=== PATIENT | male | born 1930 | race Caucasian/White ===

== ENCOUNTER 2016-07-28 11:44 | Inpatient (IN) ==
[2016-07-28] MEDS ORDERED: ASPIRIN PO ONE (12:21)
--- NOTE | 2016-07-28 12:34 | EKG Report ---
Test Performed on : 07/28/2016 12:18:25 PM Test Reason : Chest Pain Blood Pressure : / mmHG Vent. Rate : 082 BPM Atrial Rate : 082 BPM P-R Int : 126 ms QRS Dur : 200 ms QT Int : 474 ms P-R-T Axes : -22 -73 095 degrees QTc Int : 553 ms Atrial-sensed ventricular-paced rhythm Abnormal ECG When compared with ECG of 03-MAR-2015 21:43, Electronic ventricular pacemaker has replaced Wide QRS rhythm. Unconfirmed Result
[2016-07-28 13:51] LABS: MANUAL DIFF NEEDED? NO
[2016-07-28 14:00] LABS: BASO% 0.1 % (0.0-0.8); EOS# 0.01 X1000 (0.0-0.7); EOS% 0.1 % (0.0-10.0); HEMATOCRIT 27.7 % (42.0-52.0); HEMOGLOBIN 8.7 g/dL (14.0-18.0); IMM GRAN# 0.06 X1000 (0.0-0.04); IMM GRAN% 0.4 % (0.0-0.5); LYMPH# 0.72 X1000 (1.2-3.4); LYMPH% 4.5 % (20.5-51.1); MCH 25.6 PG (27-31); MCHC 31.4 g/dL (33-37); MCV 81.5 FL (81-99); MONO# 1.73 X1000 (0.11-0.59); MONO% 10.8 % (1.7-9.3); MPV 9.3 FL (7.4-10.4); NEUT% 84.1 % (42.2-75.2); PLT 318 X1000 (130-400)
--- NOTE | 2016-07-28 14:01 | Diag Imaging Result Document ---
PROCEDURE NAME: CHEST-PORTABLE - 07/28/2016 AP PORTABLE CHEST: TIME: 1230 hours. FINDINGS: The inspiration is somewhat suboptimal. There is a pacemaker on the left, which was not present on 06/30/2015. Otherwise, there has been no significant change. IMPRESSION: Poor inspiration.
[2016-07-28 14:13] LABS: INR 1.06; PROTIME 11.2 Seconds (9.2-11.7); PTT 30.6 Seconds (22.0-36.0)
[2016-07-28 14:58] LABS: CALCIUM 8.8 mg/dL (8.8-10.2); MAGNESIUM 2.1 mg/dL (1.5-2.7); POTASSIUM 5.7 mmol/L (3.5-5.1); TOTAL BILIRUBIN 0.6 mg/dL (0.20-1.00); TOTAL PROTEIN 7.5 g/dL (6.3-8.3)
[2016-07-28] MEDS ORDERED: ROCEPHIN 1 GM/NS 1 GM/50 ML IVPB IV ONE (15:29)
[2016-07-28] MEDS ORDERED: LASIX IV ONE (15:31)
[2016-07-28 16:03] LABS: URINE MICRO REVIEW NEEDED? NO; URINE SOURCE CLEAN CATCH
[2016-07-28 16:06] LABS: BILIRUBIN URINE NEGATIVE (NEGATIVE); BLOOD URINE SMALL (NEGATIVE); COLOR YELLOW; GLUCOSE URINE NEGATIVE (NEGATIVE); LEUKOCYTES URINE LARGE (NEGATIVE); NITRITE URINE POSITIVE (NEGATIVE); PH URINE 6.5; PROTEIN URINE TRACE mg/dL (NEGATIVE); SP GRAVITY URINE 1.007; TURBIDITY URINE HAZY (CLEAR); UR EPITHELIAL CELLS <10 /HPF (<10); URINE BACTERIA 4+ /HPF; URINE CULTURE NEEDED? YES; URINE RBC <10 /HPF (<10); URINE WBC TNTC /HPF (<10); UROBILINOGEN URINE NORMAL (NORMAL)
--- NOTE | 2016-07-28 16:07 | PROVIDER DOCUMENTATION ---
This chart was entered by Tari Hamilton Scribe, acting as scribe for Sheeba Oneal MD. HPI-General Adult - General Chief Complaint: Fever Stated Complaint: URINARY RETENTION Time Seen by Provider: 07/28/16 12:07 Source: patient, family Allergies/Adverse Reactions: Patient Allergies Allergy/AdvReac Type Severity Reaction Status Date / Time diphenhydramine HCl * Allergy Unknown Verified 07/28/16 15:10 [From [facility]] Home Medications: Home Medication List Medication Instructions Recorded Confirmed Last Taken Type Alprazolam 0.5 mg PO BID 08/27/13 07/28/16 07/28/16 07:00 History Clopidogrel Bisulfate [Plavix] 75 mg PO DAILY 08/27/13 07/28/16 07/28/16 07:00 History Isosorbide Mononitrate [Ismo] 20 mg PO BID 08/27/13 07/28/16 07/28/16 07:00 History Lansoprazole [Prevacid] 15 mg PO DAILY PRN PRN 08/27/13 07/28/16 07/28/16 07:00 History Metoprolol Succinate E.r. [Toprol 100 mg PO DAILY 08/27/13 07/28/16 07/28/16 07: 00 History Xl] Nortriptyline [Pamelor] 50 mg PO HS 08/27/13 07/28/16 07/27/16 20:00 History Potassium Chloride E.r. [Klor-Con] 20 meq PO TID 08/27/13 07/28/16 07/28/16 07: 00 History Allopurinol [Zyloprim] 100 mg PO HS #0 03/05/15 07/28/16 03/02/15 Rx Bumetanide 2 mg PO DAILY 07/28/16 07/28/16 07/28/16 07:00 History Levothyroxine [Synthroid] 50 microgm PO DAILY 07/28/16 07/28/16 07/28/16 07:00 History Pravastatin Sodium 40 mg PO QHS 07/28/16 07/28/16 07/27/16 20:00 History Sertraline HCl 50 mg PO DAILY 07/28/16 07/28/16 07/28/16 07:00 History - History of Present Illness -Gen Adult Nature of Presenting Problems: 86 y/o M presents to ED cc of fever, urinary retention and some mild SOB and chest discomfort. Pt had defib placed x 2 weeks ago. Pt has no complaints about defib. States seen at doc on Monday and defib is okay. Pt reports pt having a fever yesterday. Pt states he voided this morning alittle . States he still feels full. Pt has long hx of cardiac workup. Pt is on Lasix. Pt has pedal edema 3+. Pt has swelling all over. Pt is alert. Location of Pain/Injury: reports: generalized Pain Radiation: reports: no radiation Quality of Pain: reports: aching Severity: reports: mild Onset/Duration: reports: gradual Timing: reports: still present Context/Activities at Onset: reports: light activity Modifying Factors: improves with: nothing Associated Symptoms: reports: chest pain, fever/chills, shortness of breath, other (urination decreased). denies: back/neck pain, loss of appetite, sinus congestion/drainage, nausea, seizure, vomiting, weakness Review of Systems - Adult - REVIEW OF SYSTEMS - ADULT ROS:: ROS per family Constitutional: reports: fever. denies: chills Ears, Nose, Mouth & Throat: denies: ear discharge, ear pain Cardiovascular: reports: chest pain (discomfort), edema. denies: irregular heart rate, palpitations Respiratory: reports: shortness of breath. denies: cough Gastrointestinal: denies: abdominal pain, diarrhea, nausea, vomiting Genitourinary: denies: discharge, frequency Musculoskeletal: denies: bone pain, back pain Neurological: denies: dizziness/vertigo, headache/migraines Past History - Adult - PAST MEDICAL HISTORY-ADULT Review of Records: reports: Old Records Reviewed, Nursing Assessment Review Major Childhood Illnesses: reports: denies history Cardiovascular: reports: CAD, HTN (LA), hyperlipidemia, LA Respiratory: reports: denies history Gastrointestinal: reports: GERD Obstetrical/Gynecological: reports: denies history Genitourinary: reports: denies history Musculoskeletal: reports: denies history 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) Psychiatric: reports: denies history Endocrine/Immune: reports: denies history Other Conditions: reports: denies history - PRIOR SURGERIES/PROCEDURES Surgical/Procedure History: reports: CABG, cholecystectomy, tonsillectomy - PRIOR HOSPITALIZATIONS Prior Hospitalizations: reports: none - IMMUNIZATION STATUS Childhood Immunizations: See Nurse Assessment Flu Vaccine: See Nurse Assessment - FAMILY HISTORY Family History: reviewed, not pertinent - SOCIAL HISTORY Smoking: denies Substance Use: denies Physical Exam-General - PHYSICAL EXAM-ADULT Initial Vital Signs Reviewed: Yes - CONSTITUTIONAL General Appearance: alert, other (edema) - EYES Eyes: pink conjunctivae - HEAD, EARS, NOSE, MOUTH & THROAT HENMT: moist mucous membranes, normal ENT inspection - NECK Neck: non-tender - RESPIRATORY Respiratory: chest non-tender, wheezing - CARDIOVASCULAR Cardiovascular: normal peripheral pulses, regular rate, rhythm, no edema - GASTROINTESTINAL (ABDOMEN) Abdominal Exam: normal bowel sounds, non tender, soft - MUSCULOSKELETAL Back Exam: no CVA tenderness, no vertebral tenderness Extremity: non-tender, pedal edema Peripheral Pulses: dorsalis-pedis (R): 3+, dorsalis-pedis (L): 3+ - SKIN Integumentary: normal color, normal turgor, warm/dry - NEUROLOGIC Neurologic: grossly normal, no motor/sensory deficits - PSYCHIATRIC Psych/Mental Status: oriented x 3 Progress - PLAN OF CARE/RESULTS Progress/Plan/Lab Results: Vital Signs - 8 hr 07/28/16 11:48 Temperature 98.1 F Pulse Rate 82 Respiratory Rate 20 Blood Pressure 147/95 O2 Sat by Pulse Oximetry 97 PLAN: LABS, CHEST XRAY, BLADDER SCAN, MONITOR PT, CATH , DAUGHTER AND GRANDDAUGHTER AT BED SIDE. PT IS A FULL CODE. STATES HE HAS NO LIVING WILL. Result Diagrams: 07/28/16 13:35 07/28/16 13:35 - REASSESSMENT Reassessment #1 Time Reassessed: 14:51 Status: unchanged Reassessment Comment: waiting on labs, then will call pcp - EKG 1 Time of EKG reading by physician:: 12:18 EKG Read and Signed by:: Sheeba Oneal EKG Interpretation (*Must complete 3 of following elements*): Abnormal Rate: 82 Rhythm: atrial-sensed ventricular-paced rhythm Comments: no more further - XRAY 1 XRAY: Bilateral XRAY Study: Chest Impression: Normal XRAY Interpretation: enlarge heart; stable chest - Dr. Oneal (er doc) - CONSULTS/PCP/HOSPITALIST Notification #1 *Consult/PCP/Hospitalist*: (PCP) Time Discussed: 15:23 Consult Disposition: Admit (DO CT'S/LASIX/ ANITBIOTIC/ ADMIT PT TO [facility]) Departure - Departure Time of Disposition Decision: 16:05 DIAGNOSIS: Fever, Urinary retention, CHF exacerbation, Renal failure, Hyperglycemia Disposition: ADMITTED INPATIENT 09 Certified Medical Emergency: Emergent Condition: Stable Referrals and Follow-Ups: Enrique Thomas MD [Primary Care Provider] - - Critical Care Note This patient required my direct & personal management of CC.: No This chart was documented by the indicated scribe, (Tari Hamilton Scribe) and accurately reflects the services I performed and decisions made by me, Sheeba Oneal MD, as attested by the provider's signature.
--- NOTE | 2016-07-28 16:50 | Diag Imaging Result Document ---
PROCEDURE NAME: THORAX/ABDOMEN/PELVIS W/O CONT - 07/28/2016 CT OF THE CHEST WITHOUT CONTRAST: FINDINGS: There is some atelectasis, particularly in the bases. There are small pleural effusions, more so on the left than the right. There is extensive coronary atherosclerosis. There are transvenous and epicardial pacemaker leads. No evidence of pneumothorax is present. There are sternotomy wires. There is cardiomegaly. IMPRESSION: Extensive atherosclerotic change, including the coronary atherosclerosis with cardiomegaly and pleural effusions. Bibasilar atelectasis. CT UROGRAM WITHOUT CONTRAST: FINDINGS: There has been previous cholecystectomy. The spleen and adrenal glands are not enlarged. The pancreas is slightly atrophic in appearance. There is some stool throughout the colon. There are atherosclerotic calcifications in the aorta and superior mesenteric artery. There is a saccular aneurysm of the distal abdominal aorta measuring over 6 cm in AP dimension. Compared to 04/19/2010 this has increased from 4.5 cm. There is no evidence of appendicitis. There is stool throughout the colon. No bowel dilatation is present. There is a fat-containing inguinal hernia on both sides. No evidence of herniated bowel is present. There is some diverticulosis in the sigmoid colon without evidence of diverticulitis. There is no evidence of free fluid. There are spondylotic changes in the lumbar spine. There is no evidence of nephrolithiasis or hydronephrosis. There is a soft tissue density mass adjacent to or arising from the pancreatic tail at the splenic hilus measuring at least 3 cm in greatest dimension. Compared to the previous examination, this has not changed significantly in size or appearance and may represent a splenule. IMPRESSION: 1. Enlarged distal abdominal aortic aneurysm compared to 04/19/2010. 2. Constipation. 3. Atherosclerosis. 4. Stable mass at the tail of the pancreas.
[2016-07-28] MEDS ORDERED: TYLENOL PO PRN (20:59)
--- NOTE | 2016-07-28 21:37 | HISTORY AND PHYSICAL ---
CHIEF COMPLAINT: Weakness and shortness of breath. HISTORY OF PRESENT ILLNESS: Mr. Bean 86-year-old, white gentleman, not doing well for the last few weeks. The patient was complaining of weakness. The patient had 101 fever at home. Not able to get up by himself. Home health nurse called me today, very weak and lethargic. I decided to send him to the ER for evaluation. I evaluated patient 2 days ago. He did have deterioration in his renal function. The patient was more anemic. The patient recently had a pacemaker placed about 2 weeks ago. Since then the patient was more weak. The patient had low-grade fever, cough with scanty sputum production. Poor oral intake. The patient did have urinary frequency, urgency, mild hesitancy, no dysuria or hematuria. The patient denied any diarrhea, at times constipation. The patient was evaluated in the ER. We did the workup and patient found to have UTI, deterioration in renal function. I did CT scan of the abdomen and pelvis which did reveal abdominal aortic aneurysm, pancreatic mass which was stable. The patient had an enlarged prostate. The patient did have vague abdominal pain. The patient was needing assistance in ambulation. No further history available at this time. ALLERGY: Diphenhydramine. PAST MEDICAL HISTORY: Significant for coronary artery disease status post CABG. Patient had multiple stent placements. The patient was told to have advanced coronary artery disease and nothing can be done. Recent symptomatic bradycardia. Pacemaker and defibrillator placed 2 weeks ago. Enlarged prostate, possible prostate cancer. Abdominal aortic aneurysm. Pancreatic mass. Congestive heart failure due to systolic heart failure. Hypertension. Anemia most likely of chronic disease. Chronic kidney disease. Metabolic syndrome. Mild dementia. Osteoarthritis. HOME MEDICATION: Xanax, Plavix, Imdur, Synthroid, beta-darion, Pravachol, Zoloft. FAMILY HISTORY: Noncontributory. REVIEW OF SYSTEMS: As per HPI. PHYSICAL EXAMINATION: GENERAL: Elderly white gentleman, in mild distress. VITAL SIGNS: In the emergency room, blood pressure 147/95, pulse 82, respiration 20, temperature 98.1 degrees. SKIN: Senile turgor. HEENT: Head atraumatic, normocephalic. [place] conjunctivae. Anicteric sclerae. Extraocular muscle movement normal. Fundus cannot be penetrated. Good oral hygiene. No tonsillopharyngeal congestion or exudate. Ears and nose benign. NECK: Supple. No JVD, thyromegaly or lymphadenopathy. CHEST: Bibasilar crepitation. Occasional wheezing. No rales. CARDIOVASCULAR: S1 and S2 heard. 2/6 systolic murmur at the apex. No gallop. Wound of recent pacemaker well-healed. ABDOMEN: Soft, globular. Bowel sounds present. No organomegaly or mass. EXTREMITIES: No cyanosis, clubbing. Bilateral pitting edema. CENTRAL NERVOUS SYSTEM: Alert, awake. Able to move all 4 limbs. LAB DATA: Revealed leukocytosis with left shift. Hemoglobin 8.7, hematocrit 27.7, platelet count 318,000. PT/INR 1.06. D-dimer 1.19. Potassium 5.7, sodium 128, BUN 35, creatinine 2.2. ProBNP was more than 35,000. Urinalysis did reveal too numerous to count WBCs. Leukocytes were large and nitrite was positive, 4+ bacteria. CONSIDERATION: 1. Patient does have urinary tract infection. 2. Uncompensated congestive heart failure. 3. Anemia most likely of chronic disease. 4. Cardiac arrhythmia and pacemaker. 5. Chronic kidney disease. 6. Gastritis and reflux disease. 7. Osteoarthritis. 8. Situational depression and anxiety. 9. Hypertension. PLAN: 1. Admit the patient. 2. IV antibiotics. IV Lasix. Symptomatic treatment. 3. I discussed at length about poor prognosis. Family understood and agreed. They requested DNR level 2. 4. The patient's chest x-ray and CT scan results reviewed. The patient does have a pancreatic mass on CT scan. 5. Abdominal aortic aneurysm. 6. Significant cardiomegaly. cc: Enrique Thomas MD
[2016-07-28] MEDS: PROTONIX IV SCH (22:13)
[2016-07-28] MEDS: XANAX PO SCH (22:13)
[2016-07-28] MEDS: SODIUM CHLORIDE 0.9% INJ SCH (22:13)
[2016-07-28] MEDS: ISMO PO SCH (22:14)
[2016-07-28] MEDS: PRAVACHOL PO SCH (22:14)
[2016-07-29 05:36] LABS: MANUAL DIFF NEEDED? NO
[2016-07-29 05:46] LABS: EOS# 0.01 X1000 (0.0-0.7); EOS% 0.1 % (0.0-10.0); HEMATOCRIT 24.8 % (42.0-52.0); HEMOGLOBIN 7.9 g/dL (14.0-18.0); IMM GRAN# 0.04 X1000 (0.0-0.04); IMM GRAN% 0.3 % (0.0-0.5); LYMPH# 0.71 X1000 (1.2-3.4); LYMPH% 4.7 % (20.5-51.1); MCH 25.6 PG (27-31); MCHC 31.9 g/dL (33-37); MCV 80.3 FL (81-99); MONO# 1.65 X1000 (0.11-0.59); MONO% 10.8 % (1.7-9.3); MPV 9.4 FL (7.4-10.4); NEUT% 84.1 % (42.2-75.2); PLT 329 X1000 (130-400); RBC 3.09 XMIL (4.7-6.1)
[2016-07-29 06:01] LABS: ALBUMIN 3.4 g/dL (3.5-5.0); CALCIUM 8.4 mg/dL (8.8-10.2); MAGNESIUM 2.1 mg/dL (1.5-2.7); POTASSIUM 4.5 mmol/L (3.5-5.1); TOTAL BILIRUBIN 0.47 mg/dL (0.20-1.00); TOTAL PROTEIN 6.6 g/dL (6.3-8.3)
[2016-07-29] MEDS ORDERED: LASIX IV ONE (06:11)
[2016-07-29] MEDS: SYNTHROID PO SCH (06:33)
--- NOTE | 2016-07-29 07:34 | PROGRESS NOTE ---
DATE: 07/29/2016 SUBJECTIVE: Mr. Bean is doing fair. He is feeling some better today. The patient was able to void. He denied any fever or chills. He does feel weak. No nausea or vomiting. Denied any diarrhea. No typical chest pain. OBJECTIVE: His vital signs noted. Neck is supple. No JVD.Lungs: Bibasilar crepitations. Heart: S1 and S2 heard 2/6 systolic murmur at the apex. Abdomen: Soft, globular. Bowel sounds present. Rectal: I did a rectal exam. Prostate was not tender though it was enlarged. The patient had large amount of stool in the rectum. It was firm and hard. Extremities: No cyanosis or clubbing. Minimal swelling. CARD RUNNER: Alert, awake and able to move all 4 limbs. LABORATORY DATA: Done this morning showing leukocytosis with left shift. The patient does have hemoglobin of 7.9, hematocrit 24.8 and platelet count 329,000. The patient does have hyponatremia and potassium improved to 4.5. LFT: AST was 82. ALT 92. Patient's CT scan of the abdomen and pelvis results reviewed. Urine culture result is pending. IMPRESSION AND PLAN: 1. Patient admitted with febrile illness and found to have a UTI. 2. Cardiac arrhythmia, recent pacemaker and defibrillator insertion. 3. Anemia most likely of chronic disease. Considering his compromise cardiopulmonary status, I think patient will be benefited from blood transfusion. I am going to transfuse 1 unit of packed RBC. 4. Chronic kidney disease. Advanced coronary artery disease. 5. Pancreatic mass, etiology not known. Family does not want any further investigation. 6. Abdominal aortic aneurysm. 7. History suggestive of prostate cancer. 8. I am going to get physical therapy evaluation. 9. Continue rest of the treatment. 10. Close observation. 11. Overall plan discussed with the patient. He is in agreement. cc: Enrique Thomas MD
[2016-07-29] MEDS: ISMO PO SCH ×2 (09:09→20:24)
[2016-07-29] MEDS: PLAVIX PO SCH (09:09)
[2016-07-29] MEDS: ZOLOFT PO SCH (09:09)
[2016-07-29] MEDS: TOPROL XL PO SCH (09:09)
[2016-07-29] MEDS: XANAX PO SCH ×2 (09:09→20:24)
[2016-07-29] MEDS ORDERED: NS 500 ML ONE (09:46)
[2016-07-29] MEDS ORDERED: NS 250 ML ONE (13:40)
[2016-07-29] MEDS: ROCEPHIN 1 GM/NS 1 GM/50 ML IVPB IV SCH (15:07)
[2016-07-29] MEDS: PROTONIX IV SCH (20:24)
[2016-07-29] MEDS: PRAVACHOL PO SCH (20:24)
[2016-07-30] MEDS: SYNTHROID PO SCH (06:00)
[2016-07-30] MEDS ORDERED: NORCO-5 PO PRN (07:52)
[2016-07-30] MEDS ORDERED: MILK OF MAGNESIA PO ONE (07:53)
[2016-07-30 07:57] LABS: MANUAL DIFF NEEDED? NO
[2016-07-30 08:51] LABS: BASO% 0.1 % (0.0-0.8); EOS# 0.14 X1000 (0.0-0.7); EOS% 1.5 % (0.0-10.0); HEMOGLOBIN 8.8 g/dL (14.0-18.0); IMM GRAN# 0.04 X1000 (0.0-0.04); IMM GRAN% 0.4 % (0.0-0.5); LYMPH# 0.77 X1000 (1.2-3.4); LYMPH% 8.2 % (20.5-51.1); MCH 26.3 PG (27-31); MCHC 32.6 g/dL (33-37); MCV 80.6 FL (81-99); MONO# 1.61 X1000 (0.11-0.59); MONO% 17.1 % (1.7-9.3); MPV 9.9 FL (7.4-10.4); NEUT% 72.7 % (42.2-75.2); PLT 311 X1000 (130-400); RBC 3.35 XMIL (4.7-6.1)
[2016-07-30 09:01] LABS: ALBUMIN 3.1 g/dL (3.5-5.0); CALCIUM 8.4 mg/dL (8.8-10.2); POTASSIUM 4.6 mmol/L (3.5-5.1); TOTAL BILIRUBIN 0.27 mg/dL (0.20-1.00); TOTAL PROTEIN 6.2 g/dL (6.3-8.3)
[2016-07-30] MEDS: LASIX IV SCH (09:11)
[2016-07-30] MEDS: PLAVIX PO SCH (09:11)
[2016-07-30] MEDS: MIRALAX PO SCH (09:11)
[2016-07-30] MEDS: ISMO PO SCH ×2 (09:11→20:23)
[2016-07-30] MEDS: TOPROL XL PO SCH (09:11)
[2016-07-30] MEDS: XANAX PO SCH ×2 (09:11→20:23)
[2016-07-30] MEDS: ZOLOFT PO SCH (09:11)
--- NOTE | 2016-07-30 10:09 | PROGRESS NOTE ---
DATE: 07/30/2016 SUBJECTIVE: Mr. Bean is doing fair. The patient claims he is not feeling well today, though he cannot pinpoint. Complaining of pain in the hip and lower back. No nausea or vomiting. Oral intake is fair. Yesterday, we had a problem with blood transfusion. He had extravasation of blood. We had a hard time with his IV. I recommended a PICC line. They could not start PICC line on the right side, and on the left side they could not because the patient recently had a pacemaker and defibrillator placed. He denied any typical chest pain or palpitations. Complaining of mild shortness of breath. The patient does feel depressed at times due to his limitations. OBJECTIVE: Vital Signs: Noted. Neck: Supple. No JVD. Lungs: Bibasilar crepitation. Heart: A 2 over 6 systolic murmur at the apex. Abdomen: Soft, globular. Bowel sounds present. Extremities: No cyanosis, clubbing. Mild swelling. The patient does have extravasation of blood in the right arm. No evidence of infection. Central Nervous System: Alert, awake, able to move all 4 limbs. CONSIDERATION: 1. Urinary tract infection. Urine culture report revealed Gram-negative rods. ID and sensitivity is pending. The patient is on Rocephin. 2. Acute on chronic kidney disease. 3. Systolic congestive heart failure. 4. Advanced coronary artery disease. 5. Cardiac arrhythmia and pacemaker. 6. Hip pain and back pain. 7. The patient does have history suggestive of possible prostate cancer. Family did not want any biopsy. 8. Situational depression. PLAN: I am going to get x-ray, start the patient on pain management. I started him on MiraLAX to prevent constipation and to treat constipation. Overall plan discussed with the patient. Morning laboratory data pending. We will check blood work tomorrow. Out of bed to chair. PROGNOSIS: Overall prognosis is fair to guarded. Family is aware. cc: Enrique Thomas MD
--- NOTE | 2016-07-30 10:26 | Diag Imaging Result Document ---
PROCEDURE NAME: HIP W/PELVIS BILAT 2 VIEWS - 07/30/2016 PELVIS AND BILATERAL HIPS, THREE VIEWS: FINDINGS: Neither hip is dislocated. No fracture. Minimal arthritic changes to each hip. No other abnormality. IMPRESSION: Minimal arthritic changes to each hip.
--- NOTE | 2016-07-30 11:17 | PROGRESS NOTE ---
DATE: 07/30/2016 SUBJECTIVE: Mr. Bean is a patient of Dr. Thomas. He is admitted with fever, urinary retention. He had blood transfusion yesterday 2 units. White count is 9.39, hemoglobin 8.8, hematocrit 27 today. OBJECTIVE: Vital signs: Stable. Lungs: Clear. Heart: Sounds are normal. Abdomen: Soft, nontender. LABORATORY DATA: His BUN is still 46, creatinine 2.3, sodium 131. IMPRESSION: 1. Extended spectrum beta lactamase negative. 2. Escherichia coli urinary tract infection. He is getting intravenous Rocephin and he is doing fairly well. cc: MD Enrique Bran MD
[2016-07-30] MEDS: ROCEPHIN 1 GM/NS 1 GM/50 ML IVPB IV SCH (16:29)
[2016-07-30] MEDS: PROTONIX IV SCH (20:23)
[2016-07-30] MEDS: PRAVACHOL PO SCH (20:23)
[2016-07-31 05:18] LABS: EOS% 3.1 % (0.0-10.0); HEMOGLOBIN 8.7 g/dL (14.0-18.0); IMM GRAN# 0.03 X1000 (0.0-0.04); IMM GRAN% 0.5 % (0.0-0.5); LYMPH# 0.71 X1000 (1.2-3.4); LYMPH% 10.9 % (20.5-51.1); MANUAL DIFF NEEDED? YES; MCHC 32.2 g/dL (33-37); MCV 80.8 FL (81-99); MONO# 1.31 X1000 (0.11-0.59); MONO% 20.2 % (1.7-9.3); MPV 9.2 FL (7.4-10.4); NEUT% 65.3 % (42.2-75.2); PLT 313 X1000 (130-400); RBC 3.34 XMIL (4.7-6.1)
[2016-07-31 05:32] LABS: EOS 2 % (1-10); LYMPHS 14 % (21-51); MONO 8 % (1-9)
[2016-07-31 05:35] LABS: ALBUMIN 3.2 g/dL (3.5-5.0); CALCIUM 8.3 mg/dL (8.8-10.2); POTASSIUM 4.3 mmol/L (3.5-5.1); TOTAL BILIRUBIN 0.18 mg/dL (0.20-1.00); TOTAL PROTEIN 6.1 g/dL (6.3-8.3)
[2016-07-31] MEDS: SYNTHROID PO SCH (06:06)
[2016-07-31] MEDS: LASIX IV SCH (09:13)
[2016-07-31] MEDS: MIRALAX PO SCH (09:13)
[2016-07-31] MEDS: XANAX PO SCH ×2 (09:14→20:00)
[2016-07-31] MEDS: ISMO PO SCH ×2 (09:14→21:00)
[2016-07-31] MEDS: PLAVIX PO SCH (09:14)
[2016-07-31] MEDS: ZOLOFT PO SCH (09:14)
[2016-07-31] MEDS: TOPROL XL PO SCH (09:14)
--- NOTE | 2016-07-31 12:51 | PROGRESS NOTE ---
DATE: 07/31/2016 Mr. Bean is doing better. His hemoglobin is 8.7, hematocrit 27 which is stable. His white count was 6.50 electrolytes are normal. BUN and creatinine and improving; BUN is 40, creatinine is 1.9. Overall condition is stable. We will continue with the current management. -8 cc: MD Enrique Bran MD
--- NOTE | 2016-07-31 13:41 | PROGRESS NOTE ---
DATE: 07/31/2016 Mr. Bean is doing better. His hemoglobin is 8.7, hematocrit 27 which is stable. His white count was 6.50. Electrolytes normal. BUN and creatinine are improving; BUN is 40, creatinine is 1.9. Overall condition is stable. Will continue with the current management. -9 cc: MD Enrique Bran MD
[2016-07-31] MEDS: ROCEPHIN 1 GM/NS 1 GM/50 ML IVPB IV SCH (16:54)
[2016-07-31] MEDS: PROTONIX IV SCH (19:54)
[2016-07-31] MEDS: PRAVACHOL PO SCH (20:00)
[2016-08-01 05:23] LABS: MANUAL DIFF NEEDED? NO
[2016-08-01 05:40] LABS: CALCIUM 8.4 mg/dL (8.8-10.2); POTASSIUM 4.3 mmol/L (3.5-5.1)
[2016-08-01 05:47] LABS: BASO% 0.2 % (0.0-0.8); EOS# 0.28 X1000 (0.0-0.7); EOS% 4.4 % (0.0-10.0); HEMATOCRIT 27.3 % (42.0-52.0); HEMOGLOBIN 8.8 g/dL (14.0-18.0); IMM GRAN# 0.04 X1000 (0.0-0.04); IMM GRAN% 0.6 % (0.0-0.5); LYMPH# 0.84 X1000 (1.2-3.4); LYMPH% 13.3 % (20.5-51.1); MCH 26.3 PG (27-31); MCHC 32.2 g/dL (33-37); MCV 81.5 FL (81-99); MONO# 1.12 X1000 (0.11-0.59); MONO% 17.7 % (1.7-9.3); MPV 9.5 FL (7.4-10.4); NEUT% 63.8 % (42.2-75.2); PLT 329 X1000 (130-400); RBC 3.35 XMIL (4.7-6.1)
[2016-08-01] MEDS ORDERED: LINZESS PO ONE (06:34)
[2016-08-01] MEDS ORDERED: DULCOLAX PR ONE (06:35)
[2016-08-01] MEDS: SYNTHROID PO SCH (06:39)
--- NOTE | 2016-08-01 06:55 | PROGRESS NOTE ---
DATE: 08/01/2016 SUBJECTIVE: Mr. Bean is feeling some better. Mildly short of breath. Patient took 1 pain medicine which did help his pain. No nausea or vomiting. Oral intake is fair. Still concerned about constipation. We are doing MiraLAX. Milk of magnesia not helping. The patient did have significant amount of stool in the rectum when I did a rectal exam. I am going to try Dulcolax suppository and Linzess. No typical chest pain. PHYSICAL EXAMINATION: Vital Signs: His vital signs noted. Neck: Supple. No JVD. Lungs: Bibasilar crepitations. Heart: S1 and S2 heard. Abdomen: Soft, globular. Bowel sounds present. Extremities: Patient does have bruise trang on the right arm due to extravasation of blood. SMOKING TOBACCO PACKER HAND: Alert, awake. Able to move all 4 limbs. LABORATORY DATA: Done today, hemoglobin 8.8, hematocrit 27.3, WBC count 6.32, platelet count 329,000. BUN 30, creatinine 1.9 which is his baseline. Urine culture grew E. coli, sensitive to Rocephin. Blood culture negative. ASSESSMENT AND PLAN: Patient admitted with urinary tract infection. Does have systolic heart failure, acute on chronic kidney disease, osteoarthritis. Hip x-ray results reviewed and discussed with the patient. Significant constipation. Cardiac arrhythmia and pacemaker. I am going to continue current treatment. Close observation. We will treat his constipation symptomatically. Overall plan discussed with the patient and he is in agreement. cc: Enrique Thomas MD
[2016-08-01] MEDS: LASIX IV SCH (08:43)
[2016-08-01] MEDS: XANAX PO SCH ×2 (08:43→20:01)
[2016-08-01] MEDS: TOPROL XL PO SCH (08:43)
[2016-08-01] MEDS: ISMO PO SCH ×2 (08:43→20:02)
[2016-08-01] MEDS: ZOLOFT PO SCH (08:43)
[2016-08-01] MEDS: PLAVIX PO SCH (08:43)
[2016-08-01] MEDS: MIRALAX PO SCH (08:44)
[2016-08-01] MEDS: PRAVACHOL PO SCH (20:01)
[2016-08-01] MEDS: SODIUM CHLORIDE 0.9% INJ SCH (20:01)
[2016-08-01] MEDS: PROTONIX IV SCH (20:01)
[2016-08-01] MEDS: ROCEPHIN 1 GM/NS 1 GM/50 ML IVPB IV SCH (20:56)
[2016-08-02] MEDS: SYNTHROID PO SCH (06:05)
[2016-08-02] MEDS: PLAVIX PO SCH (09:15)
[2016-08-02] MEDS: LASIX IV SCH (09:15)
[2016-08-02] MEDS: ZOLOFT PO SCH (09:15)
[2016-08-02] MEDS: ISMO PO SCH (09:15)
[2016-08-02] MEDS: XANAX PO SCH (09:15)
[2016-08-02] MEDS: TOPROL XL PO SCH (09:15)
[2016-08-02] MEDS: MIRALAX PO SCH (09:15)
[2016-08-02 11:44] VITALS: BP 149/69
--- NOTE | 2016-08-02 12:31 | DISCHARGE SUMMARY ---
ADMISSION DATE: 07/28/2016 DISCHARGE DATE: 08/02/2016 FINAL DISCHARGE DIAGNOSES: 1. Uncompensated congestive heart failure. 2. Urinary tract infection. 3. Acute on chronic kidney disease. 4. Anemia, most likely of chronic disease. 5. Cardiac arrhythmia and pacemaker. 6. Coronary artery disease. 7. Gastritis and reflux disease. 8. Osteoarthritis. 9. Situational depression and anxiety. 10. Hypertension. 11. The patient does have a pancreatic mass which is stable. 12. History of prostate cancer. 13. Abdominal aortic aneurysm. HISTORY: Mr. Bean is an 86-year-old white gentleman, not doing well the last few days. The patient was complaining of weakness. Had fever up to 101 degrees at home, chills, increasing leg swelling, and not able to take care of him. Home health nurse called us. We sent the patient to the emergency room. The patient was found to have increasing leg swelling, weakness, UTI. Patient evaluated by ER physician. Admitted for further care. HOSPITAL COURSE: The patient was admitted to [facility]. Patient was started on IV Lasix, symptomatic treatment, IV antibiotics. The patient received 1 unit of packed RBC which was complicated by extravasation of blood due to poor IV access. The patient is doing better. His overall clinical condition improved. The patient is ambulating with physical therapy though patient does have some weakness. The patient lives with his elderly . Talked to his daughter and we both think patient will be benefited from short-term rehab and I decided to send him to group home for rehab. His lab data showed improvement. No high-grade fever or chills. No chest pain. PHYSICAL EXAMINATION: Vital Signs: Noted. Neck: Supple. No JVD. Lungs: Few basal crepitations. Heart: S1 and S2 heard. Abdomen: Soft, globular. Bowel sounds present. Skin: Patient does have bruise trang on the right arm and forearm. Extremities: No cyanosis, clubbing. Leg swelling improved. Crepitation both the knee joints. The patient was complaining of hip and back pain. I did an x-ray which did reveal mild osteoarthritis. HONING MACHINE SET UP OPERATOR: Alert, awake. Able to move all 4 limbs. Overall patient received maximum benefit of hospitalization. I am planning to discharge patient today to rehab. LAB DATA: Revealed hemoglobin 8.8, hematocrit 27.3, WBC count 6.32, platelet count 329,000. Admission WBC count 16.07 with left shift, which did show significant improvement. BUN 30, creatinine 1.9 which was done yesterday, which was his baseline. Admission BUN was 35 and creatinine was 2.2. Admission sodium was 128. Patient PT/INR 1.06, PTT 30.6. His LFTs on admission, AST was 191 and ALT was 144 which improved. Last one checked on July 31 AST was 34 and ALT was 53. Urinalysis did reveal too numerous to count WBC, 4+ bacteria. Urine culture grew E. coli which was sensitive to Rocephin. Patient had CT scan of the chest, abdomen, and pelvis done which did reveal enlarged distal abdominal aortic aneurysm about 4.5 cm, significant constipation, atherosclerosis, stable mass at the tail of the pancreas. Overall discharge plan and prognosis discussed with the daughter and she is in agreement. I am going to discharge him on Rocephin. Continue pain medicine and home medications. Fall precaution. Family requested DNR level 2. cc: Enrique Thomas MD
[2016-08-02] MEDS: ROCEPHIN 1 GM/NS 1 GM/50 ML IVPB IV SCH (12:46)
== END 2016-08-02 13:58 ==
LOC: ED 11:44 → EDIPHOLD 16:36 → 3S 19:22
PROVIDERS: ADMIT Internal Medicine; ATTEND Internal Medicine

== ENCOUNTER 2016-08-16 09:32 | Inpatient (IN) ==
[2016-08-16 10:26] LABS: BASO% 0.1 % (0.0-0.8); EOS# 0.01 X1000 (0.0-0.7); EOS% 0.1 % (0.0-10.0); HEMATOCRIT 27.1 % (42.0-52.0); HEMOGLOBIN 8.5 g/dL (14.0-18.0); IMM GRAN# 0.03 X1000 (0.0-0.04); IMM GRAN% 0.3 % (0.0-0.5); LYMPH# 1.12 X1000 (1.2-3.4); LYMPH% 12.1 % (20.5-51.1); MANUAL DIFF NEEDED? YES; MCH 25.4 PG (27-31); MCHC 31.4 g/dL (33-37); MCV 80.9 FL (81-99); MONO# 2.28 X1000 (0.11-0.59); MONO% 24.6 % (1.7-9.3); MPV 10.1 FL (7.4-10.4); NEUT% 62.8 % (42.2-75.2); PLT 125 X1000 (130-400); RBC 3.35 XMIL (4.7-6.1)
[2016-08-16] MEDS ORDERED: NS 1,000 ML IV ONE (10:45)
[2016-08-16 10:47] LABS: ALBUMIN 3.5 g/dL (3.5-5.0); CALCIUM 8.6 mg/dL (8.8-10.2); POTASSIUM 4.1 mmol/L (3.5-5.1); TOTAL BILIRUBIN 1.43 mg/dL (0.20-1.00); TOTAL PROTEIN 7.1 g/dL (6.3-8.3)
[2016-08-16 11:06] LABS: BANDS 6 % (0-1); LYMPHS 14 % (21-51); MONO 16 % (1-9)
[2016-08-16 11:08] LABS: HYPOCHROM 2+
--- NOTE | 2016-08-16 11:34 | Diag Imaging Result Doc PS360 ---
EXAM: CHEST-2 VIEWS HISTORY: sob TECHNIQUE: AP upright and lateral chest COMMENT: The inspiration is somewhat suboptimal. There is apparent pleural fluid in both posterior costophrenic sulci. Otherwise the appearance of the chest has not changed appreciably since 07/28/2016. The heart size remains enlarged. IMPRESSION: Cardiomegaly and bilateral pleural effusions. Electronically signed by Isma Solis 08/16/2016 11:32 AM
[2016-08-16] MEDS ORDERED: LASIX IV ONE (11:45)
[2016-08-16 13:03] LABS: URINE CULTURE NEEDED? NO; URINE SOURCE CLEAN CATCH
[2016-08-16 13:06] LABS: BILIRUBIN URINE NEGATIVE (NEGATIVE); BLOOD URINE MODERATE (NEGATIVE); COLOR ORANGE; GLUCOSE URINE NEGATIVE (NEGATIVE); LEUKOCYTES URINE NEGATIVE (NEGATIVE); NITRITE URINE NEGATIVE (NEGATIVE); PH URINE 5.5; PROTEIN URINE 70 mg/dL (NEGATIVE); SP GRAVITY URINE 1.015; TURBIDITY URINE HAZY (CLEAR); UROBILINOGEN URINE NORMAL (NORMAL)
[2016-08-16 13:08] LABS: URINE MICRO REVIEW NEEDED? YES
[2016-08-16 13:21] LABS: UR EPITHELIAL CELLS <10 /HPF (<10); URINE BACTERIA NEGATIVE /HPF; URINE RBC <10 /HPF (<10); URINE WBC <10 /HPF (<10)
[2016-08-16 13:25] LABS: URINE CASTS NONE SEEN; URINE CRYSTALS NONE SEEN; URINE SMALL ROUND CELLS NONE SEEN
[2016-08-16] MEDS ORDERED: ZAROXOLYN PO ONE (14:33)
[2016-08-16] MEDS ORDERED: PRILOSEC PO PRN (17:35)
[2016-08-16] MEDS ORDERED: XOPENEX NEB INH PRN (17:48)
[2016-08-16] MEDS ORDERED: NS NEB INH SCH (18:00)
--- NOTE | 2016-08-16 18:30 | HISTORY AND PHYSICAL ---
CHIEF COMPLAINT: Shortness of breath. HISTORY OF PRESENT ILLNESS: Mr. Bean is an 86-year-old white gentleman complaining of chest congestion, cough, wheezing, increasing shortness of breath, low-grade fever. The patient has been sick for 3 days. The patient had a fever of around 101 degree yesterday at the half-way. More than 100 degrees today. Increasing cough and chest congestion, shortness of breath, and leg swelling. The patient gained some weight. He was getting short of breath easily. Chest soreness when he coughs. His O2 saturation was staying low. Patient was placed on the heart monitor. They called me. We gave him oxygen, nitroglycerin. Patient was not feeling better. We decided to send the patient to the emergency room for further evaluation and treatment. The patient denied any hemoptysis. He does have chest soreness when he coughs. No hematemesis or melena. The patient did have vague abdominal pain. Complaining of having problems with constipation. No diarrhea, blood or mucus in the stool. The patient did have urinary hesitancy but no dysuria or hematuria. Does have arthritic pain in the lower back and at times in the hip and knee, also in the hands. Patient was feeling fatigued, tired, and no energy. Oral intake was poor. No dysphagia or odynophagia. No focal numbness or tingling. The patient was feeling weak all over. The patient is vague and a poor historian. No joint swelling or redness. No further history available at this time. ALLERGIES: Diphenhydramine. PAST MEDICAL HISTORY: Significant for hypertension, hyperlipidemia, cardiac arrhythmia, and recent pacemaker and defibrillator placed, hypothyroidism, prostate cancer, pancreatic mass, gastritis and reflux disease, gout, situational depression and anxiety, osteoarthritis, hypothyroidism, coronary artery disease, chronic constipation, abdominal aortic aneurysm, hyperlipidemia, significantly advanced coronary artery disease. PERSONAL HISTORY: , lives with the . Recently was admitted to half-way. Nonsmoker. Denied alcohol or substance abuse. REVIEW OF SYSTEMS: As per HPI. FAMILY HISTORY: Noncontributory. PHYSICAL EXAMINATION: GENERAL: Elderly white gentleman in mild distress. VITAL SIGNS: Blood pressure 151/80, pulse 90, respiration 20, temperature 100 degrees. SKIN: Senile turgor. No rash or petechiae. HEENT: Head atraumatic, normocephalic. [place] conjunctivae. Anicteric sclerae. Extraocular muscle movements normal. Fundus cannot be penetrated. Good oral hygiene. No tonsillopharyngeal congestion or exudate. Ears and nose benign. NECK: Supple. No JVD, thyromegaly, or lymphadenopathy. CHEST: Bibasilar few rales. Occasional wheezing. CARDIOVASCULAR: S1 and S2 heard. No gallop or thrill. A 2/6 systolic murmur at the apex. ABDOMEN: Soft, globular. Bowel sounds present. No organomegaly or mass. EXTREMITIES: No cyanosis, clubbing. There is 2+ pitting edema. No acute DVT. FACTORY MAINTENANCE MANAGER: Alert, awake. Answering questions fair. Able to move all 4 limbs. Crepitation in both knee joints. LABORATORY DATA: Hemoglobin 8.5, hematocrit 27.1, WBC count 9.25, platelet count 125,000. Patient does have hypochromia. Electrolytes: BUN 38, creatinine 1.9, bilirubin 1.43. ProBNP more than 35,000. Urinalysis did reveal moderate blood. His chest x-ray did reveal cardiomegaly and bilateral pleural effusions. CONSIDERATION: Elderly white gentleman admitted with febrile illness, symptoms suggestive of pulmonary infection. Chest x-ray did not reveal any pneumonia. 1. Acute bronchitis. 2. Congestive heart failure, most likely systolic. 3. Anemia of chronic disease. 4. Hypertension. 5. Hyperlipidemia. 6. Osteoarthritis. 7. Gastritis and reflux disease. 8. Hypothyroidism. 9. History suggestive of gout. PLAN: Admit the patient. IV Lasix, oxygen, pulmonary toilet, telemetry monitoring, close observation. Family requested DNR 1 as per patient wishes. IV antibiotics. Will continue bronchodilator treatment. Overall plan discussed with the patient and family. They are in agreement. cc: Enrique Thomas MD
[2016-08-16] MEDS: PRAVACHOL PO SCH (20:28)
[2016-08-16] MEDS: ROCEPHIN 1 GM/NS 1 GM/50 ML IVPB IV SCH (20:28)
[2016-08-16] MEDS: PAMELOR PO SCH (20:28)
[2016-08-16] MEDS: XANAX PO SCH (20:29)
[2016-08-16] MEDS: ZYLOPRIM PO SCH (20:29)
--- NOTE | 2016-08-17 05:38 | EKG Report ---
Test Performed on : 08/16/2016 09:35:14 AM Test Reason : No Order in [employer] Blood Pressure : / mmHG Vent. Rate : 096 BPM Atrial Rate : 096 BPM P-R Int : 104 ms QRS Dur : 198 ms QT Int : 476 ms P-R-T Axes : -07 -78 096 degrees QTc Int : 601 ms Atrial-sensed ventricular-paced rhythm Abnormal ECG When compared with ECG of 28-JUL-2016 12:18, Vent. rate has increased BY 14 BPM Unconfirmed Result
[2016-08-17] MEDS: SYNTHROID PO SCH (06:04)
[2016-08-17] MEDS ORDERED: LINZESS PO ONE (06:48)
--- NOTE | 2016-08-17 06:54 | PROGRESS NOTE ---
DATE: 08/17/2016 SUBJECTIVE: Mr. Bean is feeling some better today. He denied any typical chest pain or palpitations. Shortness of breath is better. No nausea or vomiting. No high-grade fever or chills. Mild cough. No expectoration. OBJECTIVE: Vital Signs: His vital signs noted. T-max was 99.9 degrees. Neck: Supple. No JVD. Lungs: Bibasilar crepitations. CVS: S1 and S2 heard. Abdomen: Soft, globular. Bowel sounds present. Extremities: No cyanosis, clubbing. Minimal leg swelling. FLASK FITTER: Alert, awake. Able to move all 4 limbs. Admission Lab Data: Noted. Blood work ordered for this morning, results are pending. CONSIDERATION: 1. The patient is admitted with acute bronchitis. 2. Uncompensated congestive heart failure. 3. The patient ruled in for myocardial infarction. 4. Cardiac arrhythmia and pacemaker. His EKG did reveal pacemaker rhythm. 5. The patient does have advanced coronary artery disease. 6. Abdominal aortic aneurysm. 7. Pancreatic mass. 8. Patient does have hematuria. 9. He does have elevated PSA. PLAN: The patient is on IV antibiotics, IV Lasix, beta darion, Plavix, bronchodilator treatment. We will continue current treatment and close observation. Overall plan discussed with the patient and family, and they are in agreement. cc: Enrique Thomas MD
[2016-08-17] MEDS: MIRALAX PO SCH (08:02)
[2016-08-17] MEDS: PLAVIX PO SCH (08:04)
[2016-08-17] MEDS: XANAX PO SCH ×2 (08:04→20:33)
[2016-08-17] MEDS: PEPCID PO SCH ×2 (08:04→20:33)
[2016-08-17] MEDS: ISMO PO SCH ×2 (08:05→15:13)
[2016-08-17] MEDS: LASIX IV SCH ×2 (08:05→20:34)
[2016-08-17] MEDS: ZOLOFT PO SCH (08:05)
[2016-08-17 08:37] LABS: INR 1.06; PROTIME 11.2 Seconds (9.2-11.7)
[2016-08-17 08:53] LABS: BASO% 0.1 % (0.0-0.8); EOS# 0.08 X1000 (0.0-0.7); EOS% 1.1 % (0.0-10.0); HEMATOCRIT 27.8 % (42.0-52.0); HEMOGLOBIN 8.8 g/dL (14.0-18.0); IMM GRAN# 0.03 X1000 (0.0-0.04); IMM GRAN% 0.4 % (0.0-0.5); LYMPH# 1.07 X1000 (1.2-3.4); LYMPH% 15.3 % (20.5-51.1); MANUAL DIFF NEEDED? YES; MCH 25.5 PG (27-31); MCHC 31.7 g/dL (33-37); MCV 80.6 FL (81-99); MONO# 1.63 X1000 (0.11-0.59); MONO% 23.3 % (1.7-9.3); MPV 10.1 FL (7.4-10.4); NEUT% 59.8 % (42.2-75.2); PLT 119 X1000 (130-400); RBC 3.45 XMIL (4.7-6.1)
[2016-08-17 09:06] LABS: ALBUMIN 3.3 g/dL (3.5-5.0); CALCIUM 8.7 mg/dL (8.8-10.2); POTASSIUM 3.6 mmol/L (3.5-5.1); TOTAL BILIRUBIN 0.97 mg/dL (0.20-1.00); TOTAL PROTEIN 6.7 g/dL (6.3-8.3)
[2016-08-17 09:17] LABS: BANDS 1 % (0-1); EOS 1 % (1-10); LYMPHS 7 % (21-51); MONO 15 % (1-9)
[2016-08-17 10:31] LABS: FREE T4 1.46 ng/dL (0.93-1.70)
[2016-08-17] MEDS: TOPROL XL PO SCH (14:01)
[2016-08-17] MEDS: ROCEPHIN 1 GM/NS 1 GM/50 ML IVPB IV SCH (16:52)
[2016-08-17] MEDS: ZYLOPRIM PO SCH (20:33)
[2016-08-17] MEDS: PAMELOR PO SCH (20:33)
[2016-08-17] MEDS: PRAVACHOL PO SCH (20:33)
[2016-08-17] MEDS: LOVENOX SUBQ SCH (20:40)
[2016-08-18] MEDS: SYNTHROID PO SCH (06:02)
[2016-08-18 06:14] LABS: HEMATOCRIT 26.2 % (42.0-52.0); HEMOGLOBIN 8.2 g/dL (14.0-18.0); MCH 25.8 PG (27-31); MCHC 31.3 g/dL (33-37); MCV 82.4 FL (81-99); MPV 10.1 FL (7.4-10.4); RBC 3.18 XMIL (4.7-6.1)
[2016-08-18 06:39] LABS: ALBUMIN 3.4 g/dL (3.5-5.0); CALCIUM 8.9 mg/dL (8.8-10.2); POTASSIUM 3.3 mmol/L (3.5-5.1); TOTAL BILIRUBIN 0.43 mg/dL (0.20-1.00); TOTAL PROTEIN 6.9 g/dL (6.3-8.3)
[2016-08-18] MEDS ORDERED: LASIX IV ONE (06:49)
--- NOTE | 2016-08-18 07:18 | PROGRESS NOTE ---
DATE: 08/18/2016 SUBJECTIVELY: Mr. Bean is feeling better. Less short of breath. No nausea or vomiting. Denied any chest pain. No dysuria. PHYSICAL EXAMINATION: Vital Signs: Vital signs noted. Neck: Supple. No JVD. Lungs: Bibasilar crepitations, rales are less. CVS: S1 and S2 heard. A 2/6 systolic murmur at the apex. Abdomen: Soft, globular. Bowel sounds present. Extremities: No cyanosis, clubbing. No acute DVT. MARKETING TECHNOLOGY COORDINATOR: Alert, awake. Able to move all 4 limbs. Leg swelling is less. LAB DATA: Done this morning, hemoglobin 8.2, hematocrit 26.2, platelet count 135,000. Electrolytes did reveal potassium of 3.3, BUN 56, creatinine 2.3. Troponin 0.109. CONSIDERATION: 1. Patient admitted with acute bronchitis. 2. The patient does have uncompensated congestive heart failure. 3. Acute on chronic kidney disease. 4. Anemia of chronic disease. PLAN: Considering his compromised cardiopulmonary status, I am going to transfuse 1 unit of packed RBC. I had a lengthy discussion with daughter about the patient's condition yesterday in person and again today. They are thinking about hospice versus home health. Then, after they make their final decision, we will make necessary recommendations. Continue rest of the treatment. Close observation. His other problems include hypertension, possible prostate cancer, pancreatic mass, abdominal aortic aneurysm. cc: Enrique Thomas MD
[2016-08-18] MEDS: PEPCID PO SCH ×2 (08:17→21:16)
[2016-08-18] MEDS: PLAVIX PO SCH (08:17)
[2016-08-18] MEDS: XANAX PO SCH ×2 (08:18→21:16)
[2016-08-18] MEDS: ZOLOFT PO SCH (08:18)
[2016-08-18] MEDS: ISMO PO SCH ×2 (08:18→14:52)
[2016-08-18] MEDS: MIRALAX PO SCH (08:20)
[2016-08-18] MEDS: TOPROL XL PO SCH (08:45)
[2016-08-18] MEDS: NS 500 ML IV SCH ×2 (10:43→23:57)
[2016-08-18] MEDS ORDERED: KLOR-CON PO ONE (17:19)
[2016-08-18] MEDS: ROCEPHIN 1 GM/NS 1 GM/50 ML IVPB IV SCH (18:15)
[2016-08-18] MEDS: LOVENOX SUBQ SCH (18:15)
[2016-08-18] MEDS: PAMELOR PO SCH (21:15)
[2016-08-18] MEDS: NORCO-5 PO PRN (21:15)
[2016-08-18] MEDS: ZYLOPRIM PO SCH (21:16)
[2016-08-18] MEDS: PRAVACHOL PO SCH (21:16)
[2016-08-19] MEDS: SYNTHROID PO SCH (06:18)
[2016-08-19 07:33] LABS: MANUAL DIFF NEEDED? NO
[2016-08-19 07:42] LABS: BASO% 0.2 % (0.0-0.8); EOS# 0.24 X1000 (0.0-0.7); EOS% 4.3 % (0.0-10.0); HEMATOCRIT 27.7 % (42.0-52.0); IMM GRAN# 0.03 X1000 (0.0-0.04); IMM GRAN% 0.5 % (0.0-0.5); LYMPH# 0.81 X1000 (1.2-3.4); LYMPH% 14.6 % (20.5-51.1); MCH 26.3 PG (27-31); MCHC 32.5 g/dL (33-37); MONO# 1.01 X1000 (0.11-0.59); MONO% 18.2 % (1.7-9.3); NEUT% 62.2 % (42.2-75.2); PLT 141 X1000 (130-400); RBC 3.42 XMIL (4.7-6.1)
[2016-08-19 08:22] LABS: ALBUMIN 3.3 g/dL (3.5-5.0); CALCIUM 8.9 mg/dL (8.8-10.2); POTASSIUM 3.2 mmol/L (3.5-5.1); TOTAL BILIRUBIN 0.98 mg/dL (0.20-1.00); TOTAL PROTEIN 6.5 g/dL (6.3-8.3)
[2016-08-19] MEDS: ZOLOFT PO SCH (08:50)
[2016-08-19] MEDS: MIRALAX PO SCH (08:50)
[2016-08-19] MEDS: ISMO PO SCH ×2 (08:50→18:12)
[2016-08-19] MEDS: PLAVIX PO SCH (08:50)
[2016-08-19] MEDS: TOPROL XL PO SCH (08:50)
[2016-08-19] MEDS: PEPCID PO SCH ×2 (08:50→20:52)
[2016-08-19] MEDS: XANAX PO SCH ×2 (08:54→20:52)
[2016-08-19] MEDS ORDERED: NS + KCL 20 MEQ 1,000 ML IV SCH ×2 (10:27→18:20)
[2016-08-19] MEDS ORDERED: SODIUM CHLORIDE 0.9% 10 ML ONE (18:04)
[2016-08-19] MEDS: LOVENOX SUBQ SCH (18:10)
[2016-08-19] MEDS: ROCEPHIN 1 GM/NS 1 GM/50 ML IVPB IV SCH (18:10)
--- NOTE | 2016-08-19 18:51 | PROGRESS NOTE ---
DATE: 08/19/2016 SUBJECTIVE: Mr. Bean is doing better. The patient does have some confusion. He denied any nausea or vomiting. Oral intake is poor. No high-grade fever or chills. OBJECTIVE: Vital Signs: Stable. Patient had acute kidney injury. I am giving him gentle hydration. Vital signs noted. Neck: Supple. No JVD. Lungs: Bibasilar crepitations. Heart: S1 and S2 heard. Abdomen: Soft, globular. Bowel sounds present. Extremities: No cyanosis, clubbing. No acute DVT. LIME PLANT OPERATOR: Alert, awake, able to move all 4 limbs. LAB DATA: Done today, hemoglobin 9, hematocrit 27.7, platelet count 141. WBC count 5.56. Potassium was 3.2, BUN 61, creatinine 2.3, sodium 130. CONSIDERATION/ASSESSMENT: 1. Acute on chronic kidney disease. 2. Acute bronchitis. 3. Systolic heart failure. 4. Dementia. 5. The patient does have abdominal aortic aneurysm. 6. Pancreatic mass, etiology not known. 7. Gastritis. PLAN: We will continue current treatment, gentle hydration. Discussed with the family about hospice and they are in agreement. After hydration, will make final decision. cc: Enrique Thomas MD
[2016-08-19] MEDS: PAMELOR PO SCH (20:52)
[2016-08-19] MEDS: PRAVACHOL PO SCH (20:52)
[2016-08-19] MEDS: ZYLOPRIM PO SCH (20:52)
[2016-08-19] MEDS: NORCO-5 PO PRN (20:52)
[2016-08-20] MEDS: NS 500 ML IV SCH ×3 (00:27→17:58)
[2016-08-20] MEDS: NORCO-5 PO PRN ×2 (03:15→22:12)
[2016-08-20] MEDS: SYNTHROID PO SCH (06:14)
[2016-08-20 06:45] LABS: BASO% 0.2 % (0.0-0.8); EOS# 0.19 X1000 (0.0-0.7); EOS% 4.2 % (0.0-10.0); HEMATOCRIT 27.5 % (42.0-52.0); HEMOGLOBIN 8.6 g/dL (14.0-18.0); IMM GRAN# 0.04 X1000 (0.0-0.04); IMM GRAN% 0.9 % (0.0-0.5); LYMPH# 1.14 X1000 (1.2-3.4); LYMPH% 25.3 % (20.5-51.1); MANUAL DIFF NEEDED? YES; MCH 25.7 PG (27-31); MCHC 31.3 g/dL (33-37); MCV 82.3 FL (81-99); MONO# 0.99 X1000 (0.11-0.59); NEUT% 47.4 % (42.2-75.2); PLT 156 X1000 (130-400); RBC 3.34 XMIL (4.7-6.1)
[2016-08-20 07:08] LABS: CALCIUM 8.5 mg/dL (8.8-10.2); POTASSIUM 3.7 mmol/L (3.5-5.1); TOTAL BILIRUBIN 0.56 mg/dL (0.20-1.00); TOTAL PROTEIN 6.3 g/dL (6.3-8.3)
[2016-08-20 07:24] LABS: BANDS 2 % (0-1); EOS 4 % (1-10); LYMPHS 16 % (21-51); MONO 14 % (1-9)
[2016-08-20] MEDS: TOPROL XL PO SCH (08:16)
[2016-08-20] MEDS: PEPCID PO SCH ×2 (08:16→20:59)
[2016-08-20] MEDS: PLAVIX PO SCH (08:16)
[2016-08-20] MEDS: ISMO PO SCH ×2 (08:16→16:57)
[2016-08-20] MEDS: XANAX PO SCH ×2 (08:16→20:59)
[2016-08-20] MEDS: MIRALAX PO SCH (08:17)
[2016-08-20] MEDS: ZOLOFT PO SCH (08:17)
[2016-08-20] MEDS: LASIX PO SCH ×2 (08:17→20:59)
[2016-08-20] MEDS: KLOR-CON PO SCH (08:17)
--- NOTE | 2016-08-20 13:39 | PROGRESS NOTE ---
DATE: 08/20/2016 SUBJECTIVE: Progress note for Dr. Thomas. Interval history was reviewed. Patient was given IV fluids, that were stopped. He had a good sleep last night. He just woke up and mentally lucid. No confusion. REVIEW OF SYSTEMS: General: No complaints. No headache. No vision problem. Cardiopulmonary: No chest pain, shortness of breath, PND, orthopnea. GI: No nausea, vomiting, abdominal pain. : No history of hesitancy, frequency. Extremities: Swelling of feet. Right is worse than the left side. PAST MEDICAL HISTORY, PAST SURGICAL HISTORY, AND MEDICINES: Reviewed. OBJECTIVE: Vital Signs: He is afebrile. Pulse is 79. Blood pressure is 139/91, pulse oximetry 94% on room air. Weight 219 pounds. Input and output was positive for 200 mL. HEENT: Atraumatic, normocephalic. Pupils equal, react to light. Slightly anemic. Neck: Supple. JVD is not elevated. Chest: Bilateral air entry. Heart: Sounds are regular. Abdomen: Belly is soft. No signs of peritonitis. Extremities: He has pedal edema. Right leg is worse than the left side with stasis dermatitis changes noted. Neurologic: No obvious focal deficits. INVESTIGATIONS: Chest x-ray: Cardiomegaly and AICD on the left side. Mild blunting of CP angles. EKG: Pacemaker rhythm, wide complex. CBC: White cell count 4.5, hematocrit 27.5, platelets 156,000. SMA 7: Sodium 133, potassium 3.7, chloride 93, BUN 50, creatinine 2.0. ProBNP 42928. CK was normal. Troponin was slightly positive. Blood cultures were negative. ASSESSMENT AND PLAN: 1. Altered mental status, improving. 2. Azotemia. IV fluids were stopped creatinine is 2.0. 3. Hyperlipidemia. On pravastatin. 4. Hypothyroidism. On Synthroid. 5. History of gout. On allopurinol. 6. History of abdominal aortic aneurysm 4.[address] Thomas is following. 7. Stable mass in the pancreas. 8. Anemia/kidney disease. Check the SPEP. Hemoccult stools as well as TSH and B12. 9. Chronic systolic heart failure status post pacemaker. On Plavix, Lasix, isosorbide, metoprolol. 10. Constipation. On MiraLAX. DISPOSITION: Follow up on the labs in the morning. Out of the bed with assistance. Discussed plan of care with family members and we will follow up. LEVEL OF DOCUMENTATION: Thirty-five minutes. cc: MD Enrique Silva MD
[2016-08-20] MEDS: ROCEPHIN 1 GM/NS 1 GM/50 ML IVPB IV SCH (16:57)
[2016-08-20] MEDS: LOVENOX SUBQ SCH ×2 (16:57→18:53)
[2016-08-20] MEDS: PRAVACHOL PO SCH (20:59)
[2016-08-20] MEDS: PAMELOR PO SCH (20:59)
[2016-08-20] MEDS: ZYLOPRIM PO SCH (20:59)
[2016-08-21 06:24] LABS: MANUAL DIFF NEEDED? NO
[2016-08-21 06:30] LABS: BASO% 0.2 % (0.0-0.8); EOS# 0.24 X1000 (0.0-0.7); EOS% 5.2 % (0.0-10.0); HEMATOCRIT 29.8 % (42.0-52.0); HEMOGLOBIN 9.3 g/dL (14.0-18.0); IMM GRAN# 0.04 X1000 (0.0-0.04); IMM GRAN% 0.9 % (0.0-0.5); LYMPH# 1.05 X1000 (1.2-3.4); LYMPH% 22.5 % (20.5-51.1); MCHC 31.2 g/dL (33-37); MCV 83.2 FL (81-99); MONO# 0.81 X1000 (0.11-0.59); MONO% 17.4 % (1.7-9.3); MPV 9.3 FL (7.4-10.4); NEUT% 53.8 % (42.2-75.2); PLT 181 X1000 (130-400); RBC 3.58 XMIL (4.7-6.1)
[2016-08-21] MEDS: SYNTHROID PO SCH (06:36)
[2016-08-21 06:44] LABS: POTASSIUM 3.8 mmol/L (3.5-5.1)
--- NOTE | 2016-08-21 08:02 | PROGRESS NOTE ---
DATE: 08/21/2016 SUBJECTIVE: Patient is getting out of the sleep, is in good spirits. IV fluids were off. No complaints. No chest pain, shortness of breath, PND, orthopnea. PHYSICAL EXAMINATION: Vital Signs: Weight 189 pounds. Afebrile, blood pressure is 129/58. HEENT Examination: Within normal limits. Chest: Clear to auscultation. Heart: Heart sounds are regular. Abdomen: Belly is soft, nontender. Good bowel sounds. Extremities: Slight peripheral edema. Right is worse than the left side. INVESTIGATIONS: CBC: White cell count 4.6, hematocrit 29.8, platelets 181,000. SMA 7: Sodium 135, potassium 3.8, chloride 94, BUN 46, creatinine 2, glucose 106. Thyroid function was normal. B12 is normal. SPEP is pending. ASSESSMENT AND PLAN: 1. Altered mental status, improving. 2. Chronic renal failure. Azotemia is improving. 3. History of abdominal aneurysm, stable. 4. Continue present medical therapy. Follow up on SPEP. 5. Level of care is 15 minutes. cc: MD Enrique Silva MD
[2016-08-21] MEDS: PEPCID PO SCH ×2 (09:59→21:33)
[2016-08-21] MEDS: ISMO PO SCH ×2 (09:59→16:23)
[2016-08-21] MEDS: LASIX PO SCH ×2 (09:59→21:33)
[2016-08-21] MEDS: XANAX PO SCH ×2 (09:59→21:33)
[2016-08-21] MEDS: PLAVIX PO SCH (09:59)
[2016-08-21] MEDS: KLOR-CON PO SCH (09:59)
[2016-08-21] MEDS: MIRALAX PO SCH (09:59)
[2016-08-21] MEDS: TOPROL XL PO SCH (09:59)
[2016-08-21] MEDS: ZOLOFT PO SCH (09:59)
[2016-08-21] MEDS: ROCEPHIN 1 GM/NS 1 GM/50 ML IVPB IV SCH (18:00)
[2016-08-21] MEDS: LOVENOX SUBQ SCH (18:42)
[2016-08-21] MEDS: PAMELOR PO SCH (21:33)
[2016-08-21] MEDS: PRAVACHOL PO SCH (21:33)
[2016-08-21] MEDS: ZYLOPRIM PO SCH (21:33)
[2016-08-22] MEDS: SYNTHROID PO SCH (07:56)
[2016-08-22] MEDS: TOPROL XL PO SCH (09:41)
[2016-08-22] MEDS: PEPCID PO SCH (09:41)
[2016-08-22] MEDS: LASIX PO SCH (09:41)
[2016-08-22] MEDS: PLAVIX PO SCH (09:41)
[2016-08-22] MEDS: XANAX PO SCH (09:41)
[2016-08-22] MEDS: ZOLOFT PO SCH (09:41)
[2016-08-22] MEDS: KLOR-CON PO SCH (09:41)
[2016-08-22] MEDS: ISMO PO SCH ×2 (09:41→14:53)
[2016-08-22] MEDS: MIRALAX PO SCH (09:42)
[2016-08-22 17:16] VITALS: BP 138/73
--- NOTE | 2016-08-23 06:17 | DISCHARGE SUMMARY ---
ADMISSION DATE: 08/16/2016 DISCHARGE DATE: 08/22/2016 FINAL DISCHARGE DIAGNOSES: 1. Acute bronchitis. 2. Congestive heart failure, systolic type. 3. Chronic kidney disease. 4. Anemia of chronic disease. 5. Hypertension. 6. Hyperlipidemia. 7. Osteoarthritis. 8. Hypothyroidism. 9. History suggestive of gout. 10. Gastritis and reflux disease. 11. Pancreatic mass. 12. Abdominal aortic aneurysm. 13. Anemia of chronic disease. HISTORY OF PRESENT ILLNESS: Mr. Bean, an 86-year-old white gentleman, admitted with chest congestion, cough, wheezing, fever and shortness of breath. The patient was at the longterm. He had 101 fever. The patient also had some chest pain. The patient ruled in for OR. Evaluated in the ER, admitted for further care. HOSPITAL COURSE: The patient was admitted to telemetry bed. Started on IV antibiotics, oxygen, supportive care. The patient received IV Lasix which made his renal function deteriorate. We did gentle hydration, along with some p.o. Lasix. Continue pulmonary toilet. The patient received 1 unit of packed RBC. The patient and family requested hospice care. His overall prognosis is poor. The patient has very advanced coronary artery disease. Recently had pacemaker placed. We did hospice consult. The patient and family have discussion with hospice. They are in agreement and I am going to discharge patient home on hospice. Goal of care is comfort care. Overall, patient received maximum benefit of hospitalization. He denied any chest pain, shortness of breath improved. I evaluated the patient this morning and again this afternoon. The patient is doing well. Eager to go home. OBJECTIVE: Vital Signs: Vital signs noted. Neck: Supple. No JVD. Lungs: Few basal crepitations. Heart: S1 and S2 heard. Abdomen: Soft, globular. Bowel sounds present. Extremities: No cyanosis, clubbing. Leg swelling improved. No acute DVT. CHANGE MANAGEMENT LEAD: Alert, awake. Able to move all 4 limbs. LAB DATA: Done yesterday noted hemoglobin 9.3, hematocrit 29.8, platelet count 181,000. WBC count 4.66, PT/INR 1.06, BUN 46, creatinine was 2. Sodium 135, potassium 3.8. Urinalysis was benign. There was moderate blood. Vitamin B12 was 800. TSH was 2.17. Chest x-ray done on August 16: Cardiomegaly. Bilateral pleural effusion. Overall discharge condition satisfactory. DISCHARGE PLAN: Discussed at length with the patient and his daughter. We will continue home oxygen, comfort care. The patient is DNR 1. director of therapy services will take care of the patient. I recommended to have blood work done on August 25. cc: Enrique Thomas MD
--- NOTE | 2016-08-23 16:11 | PROVIDER DOCUMENTATION ---
This chart was entered by Kaelyn Crane Scribe, acting as scribe for Rickey Tyson MD. HPI-Respiratory General - General Chief Complaint: Shortness of Breath Stated Complaint: cp,sob Time Seen by Provider: 08/16/16 10:00 Source: patient Allergies/Adverse Reactions: Patient Allergies Allergy/AdvReac Type Severity Reaction Status Date / Time diphenhydramine HCl * Allergy Unknown Verified 07/28/16 15:10 [From [facility]] Home Medications: Home Medication List Medication Instructions Recorded Confirmed Last Taken Type Alprazolam 0.5 mg PO BID 08/27/13 08/16/16 08/16/16 08:00 History 0.5 MG Clopidogrel Bisulfate [Plavix] 75 mg PO DAILY 08/27/13 08/16/16 08/16/16 08:00 History 75 MG Isosorbide Mononitrate [Ismo] 20 mg PO BID 08/27/13 08/16/16 08/16/16 08:00 History 20 MG Lansoprazole [Prevacid] 15 mg PO DAILY PRN PRN 08/27/13 08/16/16 08/16/16 08:00 History 15 MG Metoprolol Succinate E.r. [Toprol 100 mg PO DAILY 08/27/13 08/16/16 08/16/16 08: 00 History Xl] 100 MG Nortriptyline [Pamelor] 50 mg PO HS 08/27/13 08/16/16 08/16/16 08:00 History 50 MG Levothyroxine [Synthroid] 50 microgm PO DAILY 07/28/16 08/16/16 08/16/16 08:00 History 50 MICROGM Pravastatin Sodium 40 mg PO QHS 07/28/16 08/16/16 08/16/16 08:00 History 40 MG Sertraline HCl 50 mg PO DAILY 07/28/16 08/16/16 08/16/16 08:00 History 50 MG Hydrocodone/APAP 5 mg/325 mg 1 each PO Q6H PRN PRN #0 tablet 08/02/16 08/16/16 08/16/16 08:00 Rx [[place]-5] 1 EACH Polyethylene Glycol 3350 [Miralax] 17 gm PO DAILY powder, packet 08/02/1608/1608/16/16 08:00 Rx 17 GM Allopurinol [Zyloprim] 100 mg PO HS tablet 08/18/16 Unknown Rx CefUROXIME [Ceftin] 500 mg PO Q12HR #10 tablet 08/18/16 Unknown Rx Furosemide [Lasix] 40 mg PO BID #60 tablet 08/18/16 Unknown Rx Famotidine [Pepcid] 20 mg PO BID tablet 08/22/16 Unknown Rx Furosemide [Lasix] 40 mg PO BID tablet 08/22/16 Unknown Rx Potassium Chloride E.r. [Klor-Con] 20 meq PO DAILY tablet 08/22/16 Unknown Rx - History of Present Illness-Resp Nature of Presenting Problem: PT IS A 86YOM PRESENTING TO THE ED C/O SOB. PT HAS A HX OF CHF AND IS IN A REHAB FACILITY FOR HIS CHF. PT BECAME INCREASINGLY SOB THIS AM AND HIS RA SATURATION WAS 88%. PT PUT ON OXYGEN AND HIS SATURATION IMPROVED. NO OTHER COMPLAINTS NOTED Quality of Pain: reports: fullness Severity in ED: reports: mild Onset/Duration: reports: just prior to arrival Timing: reports: still present Context: denies: recent chemotherapy, recent URI Exposure: reports: unknown cause Cough Quality/Degree: reports: mild. denies: productive cough, blood streaked sputum Episode Frequency: chronic episodes Current Respiratory Medication Therapy: Initiated see nurses note Modifying Factors: improves with: exertion, lying down, oxygen. worse with: rest, sitting upright Associated Symptoms: reports: cough, shortness of breath, short of breath. denies: chest pain/soreness, dizziness, wheezing Similar Symptoms Previously?: Yes Recently seen or treated by another doctor?: No Review of Systems - Adult - REVIEW OF SYSTEMS - ADULT Constitutional: reports: no symptoms reported Eyes: reports: no symptoms reported Ears, Nose, Mouth & Throat: reports: no symptoms reported Cardiovascular: reports: no symptoms reported Respiratory: reports: see HPI, cough, dyspnea on exertion, shortness of breath. denies: excessive sputum production Gastrointestinal: reports: no symptoms reported Genitourinary: reports: no symptoms reported Musculoskeletal: reports: no symptoms reported Integumentary: reports: no symptoms reported Neurological: reports: no symptoms reported Psychiatric: reports: no symptoms reported Endocrine: reports: no symptoms reported Hematologic/Lymphatic: reports: no symptoms reported Allergic/Immunologic: reports: no symptoms reported All Other Systems: Reviewed and Negative Past History - Adult - PAST MEDICAL HISTORY-ADULT Review of Records: reports: Old Records Reviewed, Nursing Assessment Review, Medications Reviewed, Social history reviewed & non-contributory. Major Childhood Illnesses: reports: denies history Cardiovascular: reports: CAD, HTN (MT), hyperlipidemia, MT Respiratory: reports: denies history Gastrointestinal: reports: GERD Obstetrical/Gynecological: reports: denies history Genitourinary: reports: denies history Musculoskeletal: reports: denies history 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) Psychiatric: reports: denies history Endocrine/Immune: reports: denies history Other Conditions: reports: denies history - PRIOR SURGERIES/PROCEDURES Surgical/Procedure History: reports: CABG, cholecystectomy, tonsillectomy - PRIOR HOSPITALIZATIONS Prior Hospitalizations: reports: none - IMMUNIZATION STATUS Childhood Immunizations: See Nurse Assessment Flu Vaccine: See Nurse Assessment - FAMILY HISTORY Family History: reviewed, not pertinent - SOCIAL HISTORY Smoking: quit less than 1 year Substance Use: none/never, denies Alcohol Use Frequency: never Living Situation: family Physical Exam-General - PHYSICAL EXAM-ADULT Initial Vital Signs Reviewed: Yes - CONSTITUTIONAL General Appearance: appears well, alert, moderate distress - EYES Eyes: PERRL/EOMI, pink conjunctivae - HEAD, EARS, NOSE, MOUTH & THROAT HENMT: normocephalic/atraumatic, moist mucous membranes, normal ENT inspection, TMs normal, pharynx normal - NECK Neck: non-tender, full range of motion, supple, normal inspection - RESPIRATORY Respiratory: chest non-tender, no pleuratic chest pain, respiratory distress, pain on inspiration. negative: lungs clear, normal breath sounds, no respiratory distress, no accessory muscle use, plerual rub - CARDIOVASCULAR Cardiovascular: normal peripheral pulses, regular rate, rhythm, no edema, no gallop, no JVD, no murmur - GASTROINTESTINAL (ABDOMEN) Abdominal Exam: normal bowel sounds, non tender, soft, no organomegaly, no pulsatile mass - LYMPHATIC Lymphatic: no adenopathy - MUSCULOSKELETAL Back Exam: normal inspection, no CVA tenderness, no vertebral tenderness Extremity: normal range of motion, non-tender, normal gait, normal inspection, no pedal edema, no calf tenderness, normal capillary refill, pelvis stable - SKIN Integumentary: normal color, normal turgor, warm/dry - NEUROLOGIC Neurologic: extension division director II-XII nml as tested, grossly normal, no motor/sensory deficits - PSYCHIATRIC Psych/Mental Status: normal thought content, normal thought process, oriented x 3, anxious. negative: normal mood/affect Progress - PLAN OF CARE/RESULTS Progress/Plan/Lab Results: Orders Category Date Time Status Admit - [facility] Routine AdmDCTranf 08/16/16 14:36 Ordered cxr [CHEST-2 VIEWS] [RAD] Stat Exams 08/16/16 10:08 Completed BLOOD CULTURE [BLDCUL] Stat Lab 08/16/16 10:09 Completed BNP [PRO B-NATRIURETIC PEPTIDE] Stat Lab 08/16/16 10:10 Completed CBC WITH ELECTRONIC DIFF [HEME] Stat Lab 08/16/16 10:10 Completed CMP [COMPREHENSIVE METABOLIC PANEL] [CHEM] Stat Lab 08/16/16 10:10 Completed UA NIMS W/REFLEX CULT [URINALYSIS] Stat Lab 08/16/16 12:55 Completed URINE MANUAL MICROSCOPIC [URINALYSIS] Stat Lab 08/16/16 12:55 Completed 0.9% Sodium Chloride Inj [Ns] 1,000 ml Med 08/16/16 10:45 Discontinued IV 999 mls/hr Furosemide [Lasix] Med 08/16/16 11:45 Discontinued 80 mg IV NOW ONE Metolazone [Zaroxolyn] Med 08/16/16 14:33 Discontinued 10 mg PO NOW ONE Transfer/Admit Order [TRANSFER] Routine Transfer 08/16/16 14:38 Completed Result Diagrams: 08/21/16 06:08 08/21/16 06:08 Departure - Departure Date of Disposition Decision: 08/16/16 Time of Disposition Decision: 14:40 DIAGNOSIS: CHF (congestive heart failure) Qualifiers: Congestive heart failure type: combined Congestive heart failure chronicity: chronic Qualified Code(s): I50.42 - Chronic combined systolic (congestive) and diastolic (congestive) heart failure Disposition: ADMITTED INPATIENT 09 Certified Medical Emergency: Emergent Condition: Stable - Critical Care Note This patient required my direct & personal management of CC.: No This chart was documented by the indicated scribe, (Kaelyn Crane Scribe) and accurately reflects the services I performed and decisions made by me, Rickey Tyson MD, as attested by the provider's signature.
--- NOTE | 2016-08-30 08:30 | DISCHARGE SUMMARY ---
ADMISSION DATE: 08/16/2016 DISCHARGE DATE: 08/22/2016 DISCHARGE SUMMARY ADDENDUM: Patient with congestive heart failure most likely due to chronic systolic heart failure. cc: Enrique Thomas MD
== END 2016-08-22 18:15 | disposition hospice, home (50) ==
LOC: ED 09:32 → 3N 14:54
PROVIDERS: ADMIT Internal Medicine; ATTEND Internal Medicine